=== PATIENT | male | born 1970 | race Caucasian/White ===

== ENCOUNTER 2025-01-30 18:05 | Emergency (ER) | payer OTHER, SELFPAY ==
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
[2025-01-30 18:11] VITALS: BP 166/80; PULSE 116; O2SAT 99
[2025-01-30 18:16] VITALS: BP 169/91; PULSE 118; RESP 16; TEMP 36.8; O2SAT 98; BMI 32.1
[2025-01-30 19:14] LABS: MANUAL DIFF FLAG NO
[2025-01-30 19:20] LABS: Hematocrit 45.5 % (42.0-52.0); Hemoglobin 16.3 g/dl (14.0-18.0); Imm Gran Abs Auto 0.06 X10*3/uL (0.00-0.03); Imm Gran Pct Auto 0.7 % (0.0-0.4); Lymphocytes Absolute Auto 2.0 X10*3/uL (1.2-4.9); Mean Corpuscular HGB Conc 35.8 g/dl (31.0-36.0); Mean Corpuscular Hemoglobin 31.8 pg (27.0-33.0); Mean Corpuscular Volume 88.9 fL (80.0-98.0); NRBC Abs Auto 0.000 X10*3/uL (0.0-0.012); NRBC Pct Auto 0.0 /100WBC (0.0-0.2); Platelet Count 236 X10*3/uL (160-400); Red Blood Count 5.12 X10*6/uL (4.60-5.80); White Blood Count 9.0 X10*3/uL (4.8-10.8)
[2025-01-30 19:33] LABS: Anion Gap 18 (12-20); Blood Urea Nitrogen 13 mg/dL (9-16); Calcium 9.2 mg/dL (8.4-10.2); Carbon Dioxide 22 mmol/L (22-29); Chloride 103 mmol/L (96-108); Creatinine Clr Calc Pharmacy 101.8; Estimated Glomerular Filt Rate > 60; Potassium 4.6 mmol/L (3.3-5.1); Sodium 138 mmol/L (135-145)
--- NOTE | 2025-01-30 19:37 | PC.NURSE ---
pt refusing urine, and ct testing. Provider Shakir made aware.
--- OUTSIDE RECORDS SUMMARY | 2025-01-30 19:54 | XMS_ITS | Clinical Summary ---
Author Organization [facility] Prior to 07/12/[address] [place] [address] Care Team Providers Care Steward/[employer]wardess [employer] Name Role Phone Tod Wilder MD Primary Care Provider [phone] Allergies Active Allergy Reactions Criticality Noted Date Comments Amlodipine 09/15/2016 Medications Medication Sig Dispensed Refills Start Date End Date Status tamsulosin (FLOMAX) 0.4 MG CAPS Take 0.4 mg by mouth daily. 0 Active metFORMIN (GLUCOPHAGE) tablet 500 mg Take 1,000 mg by mouth 2 (two) times a day with meals. 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 Family History Medical History Relation Name Comments Hypertension Father Diabetes Paternal Grandmother Relation Name Status Comments Father Paternal Grandmother Social History Tobacco Use Types Packs/Day Years Used Date Smoking Tobacco: Never Smokeless Tobacco: Never Alcohol Use Standard Drinks/Week Comments Yes 0 (1 standard drink = 0.6 oz pur e alcohol) occasional Sex and Gender Information Value Date Recorded Sex Assigned at Not on file Gender Identity Not on file Sexual Orientation Not on file Last Filed Vital Signs Vital Sign Reading Time Taken Comments Blood Pressure 162/99 09/17/2018 9:17 AM EDT rec hecked BP Pulse 73 09/17/2018 9:12 AM EDT Temperature 36.3 C (97.4 F) 09/18/2017 9:42 AM EDT Respiratory Rate - - Oxygen Saturation - - Inhaled Oxygen Concentration - - Weight 123.8 kg (273 lb) 09/17/2018 9:12 AM EDT Height 185.4 cm (6' 1 ) 09/17/2018 9:12 AM EDT Body Mass Index 36.02 09/17/2018 9:12 AM EDT Plan of Treatment Health Maintenance Due Date Last Done Comments Hepatitis B Vaccines (1 of 3 - 3-dose series) 1970 Hepatitis C Screening 1970 COVID-19 Vaccine (#1) 06/03/1975 Pneumococcal Vaccine (1 of 2 - PCV) 1976 Depression Screening 1982 Preventative Health Evaluation 1988 DTap / Tdap / Td (1 - Tdap) 1989 Shingrix-Zoster Vaccine (1 of 2) 1989 Colon Cancer Screening (Colonoscopy) 06/03/2015 Influenza Vaccine (#1) 2024 RSV Ped < 20 months Aged Out No longe r eligible based on patient's age to complete this topic Care Teams Steward/Stewardess [employer] Relationship Specialty Start Date End Date Tod Wilder MD [address] [place] [address] PCP - General Internal Medicine 03/19/18
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
--- NOTE | 2025-01-30 20:52 | MHC.EDTECH ---
Pt refused to do a urine sample. Let RN be aware
[2025-01-30 21:21] VITALS: BP 137/76; PULSE 104; RESP 20; TEMP 36.9; O2SAT 96
[2025-01-30 21:23] VITALS: BP 137/76; PULSE 104; RESP 20; TEMP 36.9; O2SAT 96
== END 2025-01-30 21:24 | disposition home or self-care (01) ==
PROVIDERS: Physician Assistant; Emergency Provider Emergency Medicine Emergency Medical Services
DX: F10.129 Alcohol abuse with intoxication, unspecified (principal); Y90.8 Blood alcohol level of 240 mg/100 ml or more; R45.1 Restlessness and agitation; V47.5XXA Car driver injured in collision with fixed or stationary object in traffic accident, initial encounter; Y93.89 Activity, other specified; Y92.488 Other paved roadways as the place of occurrence of the external cause; Y99.8 Other external cause status
CPT/HCPCS: 36415; 70450; 71045; 72125; 80048; 80307; 85025; 99284

== ENCOUNTER → 2025-01-30 18:25 | Outpatient (BNV) | payer OTHER, SELFPAY | PROVIDERS: Emergency Provider Emergency Medicine Emergency Medical Services; Visit Provider Radiology Diagnostic Radiology | DX: Z04.3 Encounter for examination and observation following other accident (principal) | CPT/HCPCS: 70450; 71045; 72125 ==